=== PATIENT | female | born 1990 | race Caucasian/White ===

== ENCOUNTER 2020-03-01 09:00 | Emergency (ER) | payer OTHER ==
[~2020-03-01] VITALS: Ht 154.9 cm; Wt 54.4 kg
--- NOTE | 2020-03-01 09:24 | NUR ---
at bedside to examine patient.
[2020-03-01] MEDS ORDERED: ONDANSETRON 4 MG/2 ML VIAL IV ONE (09:30)
[2020-03-01] MEDS ORDERED: IV NORMAL SALINE 500 ML BAG IV ONE (09:30)
[2020-03-01] MEDS ORDERED: MORPHINE SULFATE 2 MG/1 ML DISP.SYRIN IV ONE (09:30)
[2020-03-01 09:37] LABS: *BILIRUBIN,URIN NEGATIVE (NEGATIVE); *BLOOD, URINE 1+ (NEGATIVE); *CLARITY,URINE SLIGHTLY CLOUDY (CLEAR); *COLOR,URINE YELLOW (YELLOW); *KETONES,URINE NEGATIVE (NEGATIVE); *UROBILINOGEN,URINE 0.2 E.U./dl (NORMAL); LEUKOCYTE ESTERASE ,URINE NEGATIVE (NEGATIVE); NITRITE, URINE NEGATIVE (NEGATIVE); UGLUCOSE NEGATIVE (NEGATIVE)
[2020-03-01] MEDS ORDERED: MORPHINE SULFATE 2 MG/1 ML DISP.SYRIN ONE (09:40)
[2020-03-01] MEDS ORDERED: ONDANSETRON 4 MG/2 ML VIAL ONE (09:40)
[2020-03-01 09:42] LABS: *URINE HCG, QUAL NEG (NEGATIVE)
--- NOTE | 2020-03-01 09:45 | NUR ---
Pelvic US in progress.
[2020-03-01 09:46] LABS: BASOPHILS % (AUTO) 0.8 % (0.0-2.0); HEMATOCRIT 37.2 % (31.2-41.9); HEMOGLOBIN 12.3 g/dL (10.9-14.3); LYMPHOCYTES # (AUTO) 1.8 K/uL (20.0-40.0); LYMPHOCYTES % (AUTO) 40.1 % (20.5-51.5); MEAN CORPUSCULAR HEMOGLOBIN 29.3 uug (24.7-32.8); MEAN CORPUSCULAR HGB CONC 33 g/dL (32.3-35.6); MEAN CORPUSCULAR VOLUME 88.4 fL (75.5-95.3); MONOCYTES # (AUTO) 0.2 K/uL (2.0-10.0); MONOCYTES % (AUTO) 5.5 % (0.0-11.0); NEUTROPHILS # (AUTO) 2.3 K/uL (1.8-8.9); NEUTROPHILS % (AUTO) 52.6 % (38.5-71.5); PLATELET COUNT (AUTO) 217 K/uL (179-408); RED BLOOD CELL COUNT(AUTO) 4.21 MIL/uL (3.63-4.92); WHITE BLOOD COUNT (AUTO) 4.4 K/uL (3.8-11.8)
[2020-03-01 09:53] LABS: BILIRUBIN,DIRECT 0.2 mg/dL (0.0-0.2); BILIRUBIN,TOTAL 0.6 mg/dL (0.2-1.0); POTASSIUM 4.1 mmol/L (3.5-5.1); TOTAL PROTEIN, SERUM 6.7 g/dL (6.4-8.2)
--- NOTE | 2020-03-01 10:40 | NUR ---
Per public works technician CT is down at this time for repair. Dr. Ghotra notified.
--- NOTE | 2020-03-01 11:55 | NUR ---
radiology services informed that pt. will be sent to [facility] for needed CT.
--- NOTE | 2020-03-01 12:15 | NUR ---
a call to ambulance services, to transport pt. for needed ct abdomen.
--- NOTE | 2020-03-01 12:17 | NUR ---
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
--- NOTE | 2020-03-01 12:23 | NUR ---
PT WILL BE SENT TO [facility] PER [facility] ER NURSE. I EXPLAIN THAT THE ORDER WAS ALREADY FAXED TO [facility] AND MARY WAS NOTIFIED, HE ARRANGES FOR MRI PATIENTS SENT OVER, HOWEVER ER NEEDS TO ARRANGE AMBULANCE FOR THEIR PATIENT WHEN IT COMES TO CAT SCANS.
[2020-03-01 12:35] LABS: BACTERIA,URINE NONE SEEN /HPF (NONE SEEN); RBC,URINE 0-3 /HPF (0-3); SQUAMOUS EPITHELIAL CELL,UR FEW /HPF (NONE SEEN); WBC,URINE NONE SEEN /HPF (0-3)
--- NOTE | 2020-03-01 13:03 | NUR ---
Ambulance transport in to take pt. to [facility] CT. report given to Matthew Brar.
--- NOTE | 2020-03-01 13:07 | NUR ---
104/64 Hr 66, rr 18.
--- NOTE | 2020-03-01 14:00 | NUR ---
Patient back from [facility].
[2020-03-01] MEDS ORDERED: KETOROLAC TROMETHAMINE 30 MG INJ IVP ONE (14:15)
[2020-03-01] MEDS ORDERED: KETOROLAC TROMETHAMINE 30 MG INJ ONE (14:26)
--- NOTE | 2020-03-01 14:28 | NUR ---
IV removed. Catheter intact and site benign. Pressure and 4x4 gauze applied to site. No bleeding noted.
--- NOTE | 2020-03-01 14:29 | NUR ---
Patient discharged to home in stable condition. Written and verbal after care instructions given. Patient verbalizes understanding of instructions. Stressed follow up or return to ER for worsening s/s.
[2020-03-01 14:30] VITALS: BP 123/84
== END 2020-03-01 14:31 | disposition home or self-care (01) ==
LOC: ER 09:00
DX: R10.31 Right lower quadrant pain (principal); R11.2 Nausea with vomiting, unspecified; Z84.1 Family history of disorders of kidney and ureter; Z97.5 Presence of (intrauterine) contraceptive device; Z83.3 Family history of diabetes mellitus
CPT/HCPCS: 36415; 74176; 76856; 80048; 80076; 81001; 83690; 84703; 85025; 96374; 96375; 99285; J1885; J2270; J2405; A4663; J7030